=== PATIENT | female | born 1930 | race Caucasian/White ===

== ENCOUNTER → 2019-02-04 | Outpatient (CLI) | payer MEDICARE, OTHER ==
[~2019-02-04] MED LIST: ASPIR-LOW81 MG; COZAAR100 MG; DIABETA5 MG; DIABETA5 MG PO; ESIDREX,ORETIC,25 MG; FERROUS GLUCON325 M1; METFORMIN1000 MG; METFORMIN500 MG; METOPROLOL SR100 MG; PANTOPRAZOLE40 M1; SIMVASTATIN20 MG; SYNTHROID,LEVO25 MCG PO; VITAMIN B11000 MCG/M IM; VITAMIN D32000 IU
[2019-02-04 12:46] LABS: CREATININE 1.48 mg/dL (0.55-1.02); POTASSIUM 4.2 mmol/L (3.5-5.1)
== END | disposition home or self-care (01) ==
LOC: LAB 11:53
PROVIDERS: Internal Medicine Interventional Cardiology
DX: I10 Essential (primary) hypertension (principal)

== ENCOUNTER → 2019-04-20 | Outpatient (CLI) | payer MEDICARE, OTHER ==
[~2019-04-20] MED LIST changes: -COZAAR100 MG; +COZAAR50 M1 PO; +GLYBURIDE2.5 MG PO; +GLYBURIDE5 MG PO; +IMDUR ER PO; +LASIX40 MG PO; +METFORMIN HYDR500 MG PO
--- NOTE | ~2019-04-20 | ST ---
[place], [place] EXERCISE STRESS TEST REPORT [id number] UNIT #: [id number] ROOM: DOCTOR: LORI HANSON,SHI BIRTHDATE: [birth year] DOS: 04/20/2019 LEXISCAN STRESS TEST REASON FOR TEST: The patient with chest pain and known coronary artery disease. REFERRING PHYSICIAN: Dr. Wang. PHYSICAL EXAMINATION NECK: Supple. LUNGS: Clear anteriorly. HEART: Regular rhythm. PROTOCOL: Lexiscan protocol. Maximum heart rate 93, peak blood pressure 120/68. SYMPTOMS: The patient developed mild chest pain, shortness of breath, resolved. EKG: Resting EKG shows sinus rhythm, with left bundle branch block. Stress EKG showed no ischemia. CONCLUSION: Clinically, the patient had mild chest pain, shortness of breath, resolved. EKG nonischemic, underlying left bundle branch block. POST-STRESS COMPLICATIONS: None. The patient received a total of 0.4 mg Lexiscan. SHI SANDOVAL MD CM:STRESS:EXERCISE STRESS TEST REPORT [id number] SHI SANDOVAL MD
== END | disposition home or self-care (01) ==
LOC: CARD 00:10
DX: R07.9 Chest pain, unspecified (principal); I44.7 Left bundle-branch block, unspecified; E78.2 Mixed hyperlipidemia; I10 Essential (primary) hypertension; R53.81 Other malaise; Z95.5 Presence of coronary angioplasty implant and graft

== ENCOUNTER 2019-05-09 05:42 | Inpatient (IN) | payer MEDICARE, OTHER ==
[2019-05-09] VITALS (8 sets, daily range): BP systolic 132–177; BP diastolic 66–923
[~2019-05-09] VITALS: Ht 165.1 cm; Wt 83.9 kg
[2019-05-09 06:10] LABS: BASO % 0.3 % (0.0-1.0); EOS # 0.1 10*3/uL (0.0-0.4); EOS % 1.4 % (1.0-4.0); HEMATOCRIT 39.3 % (37.0-47.0); HEMOGLOBIN 13.1 g/dl (12.0-16.0); LYMPH # 1.6 10*3/uL (1.3-4.4); LYMPH % 17.3 % (27.0-41.0); MEAN CELL VOLUME 93.3 fl (81.0-99.0); MEAN CORPUSCULAR HGB 31.1 pg (27.0-31.0); MEAN CORPUSCULAR HGB CONC 33.3 g/dl (33.0-37.0); MEAN PLATELET VOLUME 10.5 fl (9.6-12.3); MONO # 0.7 10*3/uL (0.1-1.0); MONO % 7.4 % (3.0-9.0); NEUT # 6.6 10*3/uL (2.3-7.9); NEUT % 73.3 % (47.0-73.0); PLATELET COUNT AUTOMATED 203 10*3/uL (130-400); RED BLOOD COUNT 4.21 10*6/uL (4.10-5.10); RED CELL DISTRI WIDTH 13.3 % (0-14.5)
[2019-05-09 06:27] LABS: ALBUMIN 3.5 gm/dl (3.1-4.5); CREATININE 1.97 mg/dL (0.55-1.02); POTASSIUM 3.7 mmol/L (3.5-5.1); TROPONIN I 0.017 ng/ml (<0.045)
[2019-05-09 06:33] LABS: ACT PARTIAL THROMBO TIME 23.5 SECONDS (20.0-32.1)
[2019-05-09 07:24] LABS: INTERNATIONAL NORM RATIO 0.9 (2.0-3.5)
--- NOTE | 2019-05-09 07:44 | NUR ---
NO C/O.FAMILY AT BEDSIDE.VITALS STABLE.PT BEING ADMITTED.--AIYANA SHEN RN
[2019-05-09] MEDS ORDERED: METFORM (07:51)
[2019-05-09] MEDS ORDERED: GLYB (07:51)
[2019-05-09] MEDS ORDERED: IMDUR SA60 M1 PO (07:53)
[2019-05-09] MEDS ORDERED: EUTHYROX25 MCG PO (07:54)
[2019-05-09] MEDS ORDERED: LOPRESSOR50 M1 PO (07:58)
[2019-05-09] MEDS ORDERED: Imdur SA60 MG PO (07:58)
--- NOTE | 2019-05-09 08:00 | NUR ---
A 88, admitted to , under the services of TATIANA Zurita MD with a diagnosis of CHEST PAIN AND JOSÉ. Chief complaint is CHEST PRESSURE. Patient arrived via ambulatory from ER. Monitor applied. Initial assessment completed. Vital signs taken and recorded. TATIANA ZURITA MD notified of admission to the unit. Orders received. See assessment for past medical history, medications and allergies. Patient and/or family oriented to unit. [facility] visitation policy reviewed. Clothing/patient valuable form completed. KERI MCALLISTER
--- NOTE | 2019-05-09 08:00 | NUR ---
A 88, admitted to , under the services of TATIANA Zurita MD with a diagnosis of CHEST PAIN, JOSÉ. Chief complaint is HEADACHE AND CHEST PAIN. Patient arrived via stretcher from ER. Monitor applied. Initial assessment completed. Vital signs taken and recorded. TATIANA ZURITA MD notified of admission to the unit. Orders received. See assessment for past medical history, medications and allergies. Patient and/or family oriented to unit. [facility] visitation policy reviewed. Clothing/patient valuable form completed. TIHS MUNSON
--- NOTE | 2019-05-09 08:05 | NUR ---
MEDS RECONCILED AND UPDATED WITH SON, MED LIST AND AGAINST MED CLAIM HX.
--- NOTE | 2019-05-09 08:58 | NUR ---
PT MEDICATED WITH DILAUDID .25MG IV FOR C/O CHEST PRESSURE.
--- NOTE | 2019-05-09 09:21 | NUR ---
PT VOMITING AT THIS TIME. PT CONTINUES TO C/O CHEST PRESSURE. LAB CALLED WITH ELEVATED TROPONIN LEVEL. DR ROSALES MADE AWARE AND ORDER TO TRANSFER TO [facility]U.
--- NOTE | 2019-05-09 09:27 | NUR ---
RECIEVED IN [facility] FROM [facility] FOR ELEVATED TROP FAMILY WITH PT
--- NOTE | 2019-05-09 09:27 | NUR ---
PT TRANSFERED TO [facility] AT THIS TIME.
--- NOTE | 2019-05-09 11:06 | NUR ---
Spoke to Liliya at [facility] Med Call. Informed patient has straight Medicare. No precert needed. Faxed demographic sheet.
--- NOTE | 2019-05-09 13:19 | NUR ---
TO [facility] VIA [employer] [facility] DR ROSALES HAS BEEN UPDATED ON DC AND TROP'S ALL BELONGINGS SENT HOME WITH FAMILY
== END 2019-05-09 13:18 | disposition short-term general hospital (02) | DRG 391 ==
LOC: ED 05:42 → ICCU 06:51 → EDHOLD 06:51 → 4E 07:03 → ICCU 09:25
PROVIDERS: Emergency Medicine; ADMIT Internal Medicine
DX: K29.00 Acute gastritis without bleeding (principal); N17.0 Acute kidney failure with tubular necrosis; N39.0 Urinary tract infection, site not specified; I25.10 Atherosclerotic heart disease of native coronary artery without angina pectoris; I10 Essential (primary) hypertension; E11.9 Type 2 diabetes mellitus without complications; K57.90 Diverticulosis of intestine, part unspecified, without perforation or abscess without bleeding; I44.7 Left bundle-branch block, unspecified; J44.9 Chronic obstructive pulmonary disease, unspecified; R51 Headache; T50.2X5A Adverse effect of carbonic-anhydrase inhibitors, benzothiadiazides and other diuretics, initial encounter; Z79.84 Long term (current) use of oral hypoglycemic drugs; Z79.82 Long term (current) use of aspirin; Z79.899 Other long term (current) drug therapy; Z90.49 Acquired absence of other specified parts of digestive tract; Z95.5 Presence of coronary angioplasty implant and graft; Z82.49 Family history of ischemic heart disease and other diseases of the circulatory system; Z83.3 Family history of diabetes mellitus; Z82.3 Family history of stroke; Y92.89 Other specified places as the place of occurrence of the external cause

== ENCOUNTER → 2019-05-18 | Outpatient (CLI) | payer MEDICARE, OTHER ==
[~2019-05-18] MED LIST changes: +EUTHYROX25 MCG PO; +GLYB; +IMDUR SA60 M1 PO; +Imdur SA60 MG PO; +LOPRESSOR50 M1 PO; +METFORM
== END | disposition home or self-care (01) ==
LOC: CARD 11:07
DX: I08.8 Other rheumatic multiple valve diseases (principal)

== ENCOUNTER → 2019-05-26 | Outpatient (CLI) | payer MEDICARE, OTHER ==
[2019-05-26 17:16] LABS: CREATININE 1.78 mg/dL (0.55-1.02)
== END | disposition home or self-care (01) ==
LOC: LAB 15:52
PROVIDERS: Internal Medicine
DX: N17.9 Acute kidney failure, unspecified (principal)

== ENCOUNTER → 2019-08-16 | Outpatient (CLI) | payer MEDICARE, OTHER ==
[2019-08-16 11:53] LABS: BASO % 0.5 % (0.0-1.0); EOS # 0.1 10*3/uL (0.0-0.4); EOS % 1.9 % (1.0-4.0); HEMOGLOBIN 11.4 g/dl (12.0-16.0); LYMPH # 1.1 10*3/uL (1.3-4.4); LYMPH % 17.8 % (27.0-41.0); MEAN CELL VOLUME 92.1 fl (81.0-99.0); MEAN CORPUSCULAR HGB CONC 32.6 g/dl (33.0-37.0); MEAN PLATELET VOLUME 10.7 fl (9.6-12.3); MONO # 0.5 10*3/uL (0.1-1.0); MONO % 7.5 % (3.0-9.0); NEUT # 4.6 10*3/uL (2.3-7.9); NEUT % 72.1 % (47.0-73.0); PLATELET COUNT AUTOMATED 198 10*3/uL (130-400); RED CELL DISTRI WIDTH 13.8 % (0-14.5); WHITE BLOOD COUNT 6.4 10*3/uL (4.8-10.8)
[2019-08-16 12:18] LABS: CREATININE 1.66 mg/dL (0.55-1.02); POTASSIUM 3.7 mmol/L (3.5-5.1)
== END | disposition home or self-care (01) ==
LOC: LAB 11:21
PROVIDERS: Internal Medicine
DX: I12.9 Hypertensive chronic kidney disease with stage 1 through stage 4 chronic kidney disease, or unspecified chronic kidney disease (principal); N18.2 Chronic kidney disease, stage 2 (mild)

== ENCOUNTER → 2020-01-10 | Outpatient (CLI) | payer MEDICARE, OTHER | END | disposition home or self-care (01) | LOC: RAD 01-09 15:40 | DX: M77.9 Enthesopathy, unspecified (principal); H57.10 Ocular pain, unspecified eye; M79.603 Pain in arm, unspecified ==

== ENCOUNTER → 2020-03-26 | Outpatient (CLI) | payer MEDICARE, OTHER ==
[2020-03-26 10:58] LABS: BASO % 0.7 % (0.0-1.0); EOS % 0.5 % (1.0-4.0); HEMATOCRIT 33.2 % (37.0-47.0); LYMPH # 0.6 10*3/uL (1.3-4.4); LYMPH % 10.5 % (27.0-41.0); MEAN CORPUSCULAR HGB 29.3 pg (27.0-31.0); MEAN PLATELET VOLUME 9.7 fl (9.6-12.3); MONO # 0.4 10*3/uL (0.1-1.0); MONO % 6.5 % (3.0-9.0); NEUT # 4.5 10*3/uL (2.3-7.9); NEUT % 81.6 % (47.0-73.0); PLATELET COUNT AUTOMATED 236 10*3/uL (130-400); RED BLOOD COUNT 3.86 10*6/uL (4.10-5.10); RED CELL DISTRI WIDTH 13.3 % (0-14.5); WHITE BLOOD COUNT 5.5 10*3/uL (4.8-10.8)
[2020-03-26 11:14] LABS: ALBUMIN 3.3 gm/dl (3.1-4.5); POTASSIUM 3.7 mmol/L (3.5-5.1)
[2020-03-26 11:19] LABS: CREATININE 1.51 mg/dL (0.55-1.02); FREE T4 1.5 ng/dl (0.76-1.46); THYROID STIM HORMONE (HS) 2.38 uIU/ml (0.358-4.75); TOTAL PROTEIN 6.3 gm/dL (6.4-8.2)
[2020-03-26 11:49] LABS: VITAMIN D, 25-HYDROXY 108.4 ng/mL (30-100)
== END | disposition home or self-care (01) ==
LOC: LAB 10:39
PROVIDERS: ATTEND Internal Medicine
DX: I10 Essential (primary) hypertension (principal); E78.2 Mixed hyperlipidemia; E11.9 Type 2 diabetes mellitus without complications; E03.9 Hypothyroidism, unspecified; E55.9 Vitamin D deficiency, unspecified; Z00.00 Encounter for general adult medical examination without abnormal findings

== ENCOUNTER 2020-04-04 10:01 | Inpatient (IN) | payer MEDICARE, OTHER ==
[~2020-04-04] VITALS: Ht 168 cm; Wt 82.0 kg
[2020-04-04 10:08] VITALS: BP 117/61
[2020-04-04 10:42] LABS: BASO % 0.5 % (0.0-1.0); EOS % 0.2 % (1.0-4.0); LYMPH # 0.6 10*3/uL (1.3-4.4); LYMPH % 13.9 % (27.0-41.0); MEAN CELL VOLUME 86.5 fl (81.0-99.0); MEAN CORPUSCULAR HGB 29.2 pg (27.0-31.0); MEAN CORPUSCULAR HGB CONC 33.8 g/dl (33.0-37.0); MEAN PLATELET VOLUME 9.3 fl (9.6-12.3); MONO # 0.4 10*3/uL (0.1-1.0); NEUT # 3.4 10*3/uL (2.3-7.9); NEUT % 77.2 % (47.0-73.0); PLATELET COUNT AUTOMATED 178 10*3/uL (130-400); RED CELL DISTRI WIDTH 13.4 % (0-14.5); WHITE BLOOD COUNT 4.4 10*3/uL (4.8-10.8)
[2020-04-04 10:53] LABS: ACT PARTIAL THROMBO TIME 24.5 SECONDS (20.0-32.1)
[2020-04-04 10:59] LABS: ALBUMIN 3.2 gm/dl (3.1-4.5); CREATININE 1.46 mg/dL (0.55-1.02); POTASSIUM 3.5 mmol/L (3.5-5.1); TOTAL PROTEIN 6.3 gm/dL (6.4-8.2); TROPONIN I 0.034 ng/ml (<0.045)
[2020-04-04 11:32] LABS: BILIRUBIN Negative (Negative); BLOOD Negative (Negative); CLARITY Clear (Clear); COLOR Yellow (Yellow); GLUCOSE Negative (Negative); KETONE Negative (Negative); LEUKO ESTERASE Trace (Negative); NITRITE Negative (Negative); PH 5.5 (4.5-8.0); SPECIFIC GRAVITY 1.015 (1.001-1.030)
[2020-04-04 11:54] LABS: BACTERIA TRACE; RBC 0-2 rbc/hpf (0-2)
--- NOTE | 2020-04-04 15:30 | NUR ---
The assessment has been completed. MEGHANN OSMAN The assessment has been completed. MEGHANN OSMAN Time: 153 A 89 year old FEMALE admitted to 4E under services of TATIANA ZURITA MD. Pt. arrived via ambulatory from ER. Chief complaint: PT WAS SENT TO ED BY DR ROSALES FOR POSSIBLE UTI. PT RECENTLY HAD UTI AND PRESCRIBED ABX. PER SON PT IS CONFUSED AT TIMES AND HAS BEEN UNABLE TO COMPHREHEND DAY TO DAY ACTIVITIES. . MEGHANN OSMAN
--- NOTE | 2020-04-04 15:38 | NUR ---
PATIENT TAKEN TO FLOOR BY LADONNA ROCHA AUTOMATION CONTROL INTEGRATOR. REPORT GIVEN TO MEGHANN HIGH.
--- NOTE | 2020-04-04 15:39 | NUR ---
PATIENT DENIED WOUNDS A&OX4.
[2020-04-04 15:45] VITALS: BP 151/64
[2020-04-04] MEDS ORDERED: PLAVIX75 M1 PO (16:01)
[2020-04-04] MEDS ORDERED: CRESTOR20 M1 PO (16:01)
[2020-04-04 20:00] VITALS: BP 128/50
--- NOTE | 2020-04-04 20:29 | NUR ---
IN TO ASSESS PATIENT AT THIS TIME. PATIENT ALERT TO PERSON AND PLACE, BUT UNSURE OF TIME AND SITUATION. PATIENT STATES SHE HAS BEEN CONFUSED FOR A WHILE, AND ISN'T REALLY SURE WHY SHE IS HERE. EXPLAINED TO PATIENT WHY SHE WAS HERE AND SHE STATES SHE JUST WANTS TO GET BACK HOME. PATIENT HAS NO COMPLAINTS AT THIS TIME BESIDES JUST BEING A LITTLE CONFUSED. DENIES URINARY SYMPTOMS. CALL LIGHT WTIHIN REACH, BED ALARM INTACT, WILL CONTINUE TO MONITOR
[2020-04-05] VITALS: BP 128/44
--- NOTE | 2020-04-05 01:55 | NUR ---
24 HR chart check completed.
--- NOTE | 2020-04-05 03:00 | NUR ---
IV started left forearm with #22 protective cath after 0 attempts. Site prepped with Chloroprep. Sterile dressing applied. Patient tolerated procedure well. IV infusing at 70 cc/hr. LAITH TORRES
[2020-04-05 07:21] LABS: BASO % 0.9 % (0.0-1.0); EOS # 0.1 10*3/uL (0.0-0.4); EOS % 1.5 % (1.0-4.0); HEMATOCRIT 30.9 % (37.0-47.0); LYMPH # 0.9 10*3/uL (1.3-4.4); LYMPH % 27.3 % (27.0-41.0); MEAN CELL VOLUME 86.8 fl (81.0-99.0); MEAN CORPUSCULAR HGB 28.4 pg (27.0-31.0); MEAN CORPUSCULAR HGB CONC 32.7 g/dl (33.0-37.0); MEAN PLATELET VOLUME 9.5 fl (9.6-12.3); MONO # 0.4 10*3/uL (0.1-1.0); MONO % 11.5 % (3.0-9.0); NEUT # 1.9 10*3/uL (2.3-7.9); NEUT % 58.5 % (47.0-73.0); PLATELET COUNT AUTOMATED 155 10*3/uL (130-400); RED BLOOD COUNT 3.56 10*6/uL (4.10-5.10); RED CELL DISTRI WIDTH 13.6 % (0-14.5); WHITE BLOOD COUNT 3.3 10*3/uL (4.8-10.8)
[2020-04-05 07:48] LABS: CREATININE 1.12 mg/dL (0.55-1.02); POTASSIUM 3.3 mmol/L (3.5-5.1)
[2020-04-05 08:00] VITALS: BP 150/69
--- NOTE | 2020-04-05 09:00 | NUR ---
Garage Mechanic in to talk to patient. Patient states lives at home alone with her 2 sons checking in on him. There are 5-6 steps in the home. Physician: Dr. Lolita Barrett Pharmacy: [facility] Home health services: would like [facility] on discharge Patient's level of ADLs: MINIMAL ASSIST Patient has working utilities: yes DME: cane (when outside) Follow-up physician's appointment after d/c: she prefers to make her own follow up appt after discharge Does patient want to access PORTAL?: no Discharge plan discussed with patient. She lives at home alone with her 2 sons checking in on her. Per son he has been staying with her for 3 weeks d/t her confusion. She states she is forgetful and gets confused easily. She states she is normally independent in her ADLs and ambulation but does use a cane when outside. Discussed short term rehab and she refuses. Discussed home health care services and she is agreeable. When provided with a list of agencies she chose [facility]. When medically stable she will be discharged to home with [facility] services. She states one of her sons will provide transportation on discharge. ALFONSO CHAUDHARI
[2020-04-05 12:00] VITALS: BP 141/56
[2020-04-05 16:00] VITALS: BP 135/63
--- NOTE | 2020-04-05 19:34 | NUR ---
NOTIFIED DR ROSALES OF PT C/O CHEST PRESSURE.ORDER RECIEVED.
[2020-04-05 20:00] VITALS: BP 142/57
--- NOTE | 2020-04-05 21:04 | NUR ---
XANEX NOT EFFECTIVE
--- NOTE | 2020-04-05 21:29 | NUR ---
PATIENT OVERHEAD FOREMAN LIGHT STATING SHE NEEDS HELP. THIS NURSE INTO CHECK ON PATIENT. PATIENT HOLDING HER CHEST AND COMPLAINING OF CHEST PAIN. VITALS SIGNS CHECKED. HR IN THE 110'S BP MANUALLY 170/82 AND PULSE OX 97% ON RA. PATIENT STATES SHE IS HAVING CHEST PAIN DUE TO HER ANXIETY AND IF SHE COULD JUST HAVE SOMETHING FOR IT SHE COULD RELAX. REMINDED PATIENT SHE WAS RECENTLY MEDICATED WITH A XANEX. SCHEDULED DOSE OF LOPRESSOR GIVEN TO PATIENT FOR BLOOD PRESSURE AND HEART RATE. WILL CONTINUE TO MONTIOR.
[2020-04-05 21:37] VITALS: BP 170/82
--- NOTE | 2020-04-05 22:16 | NUR ---
PATIENT UP TO BEDSIDE COMMODE WITH MINIMAL ASSIST. HELPED BACK INTO BED. REPOSITIONED FOR COMFORT. BED PLACED IN LOWEST POSITION,CALL LIGHT WITHIN REACH. BED ALARM ON. WILL CONITNUE TO MONITOR.
[2020-04-06] VITALS: BP 163/62
--- NOTE | 2020-04-06 00:58 | NUR ---
24 HR chart check completed.
--- NOTE | 2020-04-06 03:30 | NUR ---
PATIENT SLEEPING. NO SIGNS OF DISTRESS RESPIRATIONS EASY, NON LABORED. BED IN LOWEST POSITION,CALL LIGHT WITHIN REACH. BED IN LOWEST POSITION,CALL LIGHT WITHIN REACH. WILL CONTINUE TO MONITOR.
[2020-04-06 08:00] VITALS: BP 139/64
[2020-04-06] MEDS ORDERED: ARICEPT5 M1 PO (08:58)
[2020-04-06] MEDS ORDERED: RISPERDAL0.5 MG PO (08:58)
[2020-04-06 09:43] LABS: CREATININE 1.11 mg/dL (0.55-1.02); POTASSIUM 3.5 mmol/L (3.5-5.1)
--- NOTE | 2020-04-06 11:00 | NUR ---
Faxed home health referral, face to face, clinical, and discharge instructions to [facility].
--- NOTE | 2020-04-06 11:24 | NUR ---
HEPLOCK REMOVED. DISCHARGE INSTRUCTIONS REVIEWED WITH PATIENT'S SON, KELLY. PRESCRIPTIONS GIVEN WITH PACKET TO HIM. PT TRANPORTED OUT VIA WHEELCHAIR TO PRIVATE CAR.
== END 2020-04-06 11:24 | disposition home health service (06) | DRG 71 ==
LOC: ED 10:01 → 4E 11:36 → EDHOLD 11:36 → 4E 15:13
PROVIDERS: Emergency Medicine; ADMIT Internal Medicine; ATTEND Internal Medicine
DX: G93.41 Metabolic encephalopathy (principal); E87.1 Hypo-osmolality and hyponatremia; E87.8 Other disorders of electrolyte and fluid balance, not elsewhere classified; E87.6 Hypokalemia; I12.9 Hypertensive chronic kidney disease with stage 1 through stage 4 chronic kidney disease, or unspecified chronic kidney disease; K57.90 Diverticulosis of intestine, part unspecified, without perforation or abscess without bleeding; E11.22 Type 2 diabetes mellitus with diabetic chronic kidney disease; N18.31 Chronic kidney disease, stage 3a; I25.10 Atherosclerotic heart disease of native coronary artery without angina pectoris; T50.2X5A Adverse effect of carbonic-anhydrase inhibitors, benzothiadiazides and other diuretics, initial encounter; Y92.89 Other specified places as the place of occurrence of the external cause; Z90.49 Acquired absence of other specified parts of digestive tract; Z82.3 Family history of stroke; Z95.5 Presence of coronary angioplasty implant and graft; Z83.3 Family history of diabetes mellitus; Z82.49 Family history of ischemic heart disease and other diseases of the circulatory system

== ENCOUNTER 2020-05-02 09:55 | Emergency (ER) | payer MEDICARE, OTHER ==
[~2020-05-02 09:55] MED LIST changes: +ARICEPT5 M1 PO; +CRESTOR20 M1 PO; +PLAVIX75 M1 PO; +RISPERDAL0.5 MG PO
== END 2020-05-02 13:26 | disposition home or self-care (01) ==
LOC: ED 09:55
DX: G45.9 Transient cerebral ischemic attack, unspecified (principal); Z79.899 Other long term (current) drug therapy; Z79.2 Long term (current) use of antibiotics

== ENCOUNTER 2021-06-11 10:16 | Emergency (ER) | payer MEDICARE, OTHER ==
[~2021-06-11] VITALS: Ht 170.1 cm; Wt 74.4 kg
[~2021-06-11 10:16] MED LIST changes: +PANTOPRAZOLE SO40 MG PO; -PANTOPRAZOLE40 M1
[2021-06-11 10:50] LABS: BASO % 0.5 % (0.0-1.0); EOS # 0.1 10*3/uL (0.0-0.4); EOS % 0.9 % (1.0-4.0); HEMATOCRIT 36.2 % (37.0-47.0); LYMPH # 0.9 10*3/uL (1.3-4.4); LYMPH % 16.6 % (27.0-41.0); MEAN CELL VOLUME 87.9 fl (81.0-99.0); MEAN CORPUSCULAR HGB 27.4 pg (27.0-31.0); MEAN CORPUSCULAR HGB CONC 31.2 g/dl (33.0-37.0); MONO # 0.4 10*3/uL (0.1-1.0); MONO % 7.9 % (3.0-9.0); NEUT # 4.1 10*3/uL (2.3-7.9); NEUT % 73.7 % (47.0-73.0); PLATELET COUNT AUTOMATED 197 10*3/uL (130-400); RED BLOOD COUNT 4.12 10*6/uL (4.10-5.10); RED CELL DISTRI WIDTH 15.6 % (0-14.5); WHITE BLOOD COUNT 5.6 10*3/uL (4.8-10.8)
[2021-06-11 11:02] LABS: ACT PARTIAL THROMBO TIME 23.4 SECONDS (20.0-32.1)
[2021-06-11 11:15] LABS: ALKALINE PHOSPHATASE 68 U/L (45-117); BUN 58 mg/dl (7-24); CHLORIDE 109 mmol/L (98-107); CREATININE 2.16 mg/dL (0.55-1.02); LIPASE 69 U/L (73-393); POTASSIUM 4.8 mmol/L (3.5-5.1); SGOT/AST 24 IU/L (3-35); SGPT/ALT 48 U/L (12-78); SODIUM 141 mmol/L (136-145); TOTAL PROTEIN 6.6 gm/dL (6.4-8.2)
[2021-06-11 13:06] LABS: BILIRUBIN Negative (Negative); BLOOD Trace-Lysed (Negative); CLARITY Clear (Clear); COLOR Yellow (Yellow); GLUCOSE Negative (Negative); KETONE Trace (Negative); LEUKO ESTERASE Trace (Negative); NITRITE Negative (Negative); UROBILINOGEN 0.2 E.U./dl (0.0-1.0)
[2021-06-11 13:17] LABS: WBC 16-20 wbc/hpf (0-5)
[2021-06-11 13:18] LABS: EPITHELIAL CELLS 0-2
[2021-06-11] MEDS ORDERED: BUSPIRONE HCL7.5 MG PO (18:38)
[2021-06-11] MEDS ORDERED: MULTI-VITAMIN1 EACH PO (18:39)
[2021-06-11] MEDS ORDERED: LASIX20 MG PO (18:40)
== END 2021-06-12 04:16 | disposition short-term general hospital (02) ==
LOC: ED 10:16
PROVIDERS: Emergency Medicine
DX: I44.2 Atrioventricular block, complete (principal)

== ENCOUNTER 2021-07-02 10:47 | Inpatient (IN) | payer MEDICARE, OTHER ==
[2021-07-02] VITALS (7 sets, daily range): BP systolic 166–216; BP diastolic 69–84
[~2021-07-02] VITALS: Ht 167.6 cm; Wt 74.0 kg
[~2021-07-02 10:47] MED LIST changes: +BUSPIRONE HCL7.5 MG PO; +LASIX20 MG PO; +MULTI-VITAMIN1 EACH PO
[2021-07-02 11:22] LABS: BASO % 0.6 % (0.0-1.0); EOS # 0.1 10*3/uL (0.0-0.4); HEMATOCRIT 37.1 % (37.0-47.0); LYMPH # 0.7 10*3/uL (1.3-4.4); LYMPH % 14.4 % (27.0-41.0); MEAN CELL VOLUME 88.1 fl (81.0-99.0); MEAN CORPUSCULAR HGB 27.8 pg (27.0-31.0); MEAN CORPUSCULAR HGB CONC 31.5 g/dl (33.0-37.0); MEAN PLATELET VOLUME 10.1 fl (9.6-12.3); MONO # 0.4 10*3/uL (0.1-1.0); MONO % 7.4 % (3.0-9.0); NEUT # 3.9 10*3/uL (2.3-7.9); NEUT % 76.4 % (47.0-73.0); PLATELET COUNT AUTOMATED 234 10*3/uL (130-400); RED BLOOD COUNT 4.21 10*6/uL (4.10-5.10); RED CELL DISTRI WIDTH 15.9 % (0-14.5); WHITE BLOOD COUNT 5.2 10*3/uL (4.8-10.8)
[2021-07-02 11:34] LABS: ACT PARTIAL THROMBO TIME 23.3 SECONDS (20.0-32.1)
[2021-07-02 11:38] LABS: BILIRUBIN Negative (Negative); BLOOD Negative (Negative); CLARITY Clear (Clear); COLOR Yellow (Yellow); GLUCOSE Negative (Negative); KETONE Negative (Negative); LEUKO ESTERASE Negative (Negative); NITRITE Negative (Negative); PH 6.5 (4.5-8.0); SPECIFIC GRAVITY 1.015 (1.001-1.030)
[2021-07-02 11:46] LABS: MUCOUS TRACE
[2021-07-02 11:53] LABS: CREATININE 1.4 mg/dL (0.55-1.02); POTASSIUM 3.9 mmol/L (3.5-5.1); TOTAL PROTEIN 6.7 gm/dL (6.4-8.2)
[2021-07-03] VITALS (8 sets, daily range): BP systolic 124–182; BP diastolic 65–90
[2021-07-03] MEDS ORDERED: VITAMIN D325 MCG PO (02:34)
[2021-07-03] MEDS ORDERED: ASPIRIN ADULT L81 M1 PO (02:34)
[2021-07-03] MEDS ORDERED: ONE-DAILY MULT1 EAC1 PO (02:35)
[2021-07-03] MEDS ORDERED: GLIPIZIDE-METF1 EACH PO (02:37)
[2021-07-03] MEDS ORDERED: CLONIDINE HYDR0.1 MG PO (02:46)
[2021-07-03 06:21] LABS: POTASSIUM 3.9 mmol/L (3.5-5.1)
[2021-07-03 06:25] LABS: CREATININE 1.18 mg/dL (0.55-1.02)
[2021-07-03 06:55] LABS: BASO % 0.8 % (0.0-1.0); EOS # 0.1 10*3/uL (0.0-0.4); EOS % 1.3 % (1.0-4.0); HEMATOCRIT 35.9 % (37.0-47.0); LYMPH % 21.2 % (27.0-41.0); MEAN CELL VOLUME 88.6 fl (81.0-99.0); MEAN CORPUSCULAR HGB 27.7 pg (27.0-31.0); MEAN CORPUSCULAR HGB CONC 31.2 g/dl (33.0-37.0); MEAN PLATELET VOLUME 10.3 fl (9.6-12.3); MONO # 0.5 10*3/uL (0.1-1.0); MONO % 11.2 % (3.0-9.0); NEUT # 3.1 10*3/uL (2.3-7.9); NEUT % 65.3 % (47.0-73.0); PLATELET COUNT AUTOMATED 228 10*3/uL (130-400); RED BLOOD COUNT 4.05 10*6/uL (4.10-5.10); RED CELL DISTRI WIDTH 15.9 % (0-14.5); WHITE BLOOD COUNT 4.7 10*3/uL (4.8-10.8)
[2021-07-04 08:00] VITALS: BP 164/62
[2021-07-04 12:00] VITALS: BP 125/56
[2021-07-04 16:00] VITALS: BP 134/68
[2021-07-04 20:00] VITALS: BP 162/62
[2021-07-05] VITALS: BP 176/68
[2021-07-05 08:00] VITALS: BP 164/75
[2021-07-05 12:00] VITALS: BP 173/71
[2021-07-05] MEDS ORDERED: ZYVOX600 MG PO (12:06)
[2021-07-05] MEDS ORDERED: LOSARTAN POTASS50 M1 PO (12:08)
[2021-07-05 16:00] VITALS: BP 173/71
== END 2021-07-05 16:34 | DRG 689 ==
LOC: ED 10:47 → EDHOLD 14:37 → 5E 14:37
PROVIDERS: Emergency Medicine; ADMIT Internal Medicine; ATTEND Internal Medicine
DX: N39.0 Urinary tract infection, site not specified (principal); G93.41 Metabolic encephalopathy; G30.1 Alzheimer's disease with late onset; F02.80 Dementia in other diseases classified elsewhere, unspecified severity, without behavioral disturbance, psychotic disturbance, mood disturbance, and anxiety; Z20.822 Contact with and (suspected) exposure to COVID-19; I44.7 Left bundle-branch block, unspecified; I12.9 Hypertensive chronic kidney disease with stage 1 through stage 4 chronic kidney disease, or unspecified chronic kidney disease; E11.22 Type 2 diabetes mellitus with diabetic chronic kidney disease; I25.10 Atherosclerotic heart disease of native coronary artery without angina pectoris; R26.2 Difficulty in walking, not elsewhere classified; E03.9 Hypothyroidism, unspecified; F41.1 Generalized anxiety disorder; N18.31 Chronic kidney disease, stage 3a; K21.00 Gastro-esophageal reflux disease with esophagitis, without bleeding; K57.90 Diverticulosis of intestine, part unspecified, without perforation or abscess without bleeding; B95.7 Other staphylococcus as the cause of diseases classified elsewhere; Z95.5 Presence of coronary angioplasty implant and graft

== ENCOUNTER 2021-08-08 20:54 | Emergency (ER) | payer MEDICARE, OTHER ==
[~2021-08-08 20:54] MED LIST changes: +ASPIRIN ADULT L81 M1 PO; +CLONIDINE HYDR0.1 MG PO; +GLIPIZIDE-METF1 EACH PO; +LOSARTAN POTASS50 M1 PO; +ONE-DAILY MULT1 EAC1 PO; +VITAMIN D325 MCG PO; +ZYVOX600 MG PO
== END 2021-08-08 21:13 ==
LOC: ED 20:54
DX: M54.50 Low back pain, unspecified (principal); M79.604 Pain in right leg; M79.605 Pain in left leg; Z79.899 Other long term (current) drug therapy; Z79.82 Long term (current) use of aspirin; Z90.49 Acquired absence of other specified parts of digestive tract; Z90.89 Acquired absence of other organs; W07.XXXA Fall from chair, initial encounter; Y93.89 Activity, other specified; Y92.89 Other specified places as the place of occurrence of the external cause; Y99.8 Other external cause status